=== PATIENT | female | born 1970 | race Two or more races ===

== ENCOUNTER 2025-10-10 15:38 | Inpatient (IN) | payer MEDICARE, OTHER ==
[~2025-10-10] VITALS: Ht 165.1 cm; Wt 61.7 kg
[2025-10-10 15:53] VITALS: O2SAT 99
[2025-10-10 16:08] LABS: PLATELET COUNT (AUTO) 379 K/uL (150-450); RED BLOOD CELL COUNT(AUTO) 4.58 MIL/uL (4.0-5.2); RED CELL DISTRIBUTION WIDTH 14.1 % (11.5-15.0); WHITE BLOOD COUNT (AUTO) 11.3 K/uL (4.3-11.0)
[2025-10-10 16:15] LABS: CALCIUM, SERUM 8.9 mg/dL (8.5-10.1); CREATININE 0.9 mg/dL (0.6-1.3); SODIUM SERUM 141 mmol/L (136-145); UREA NITROGEN, BLOOD 12 mg/dL (7-18)
[2025-10-10 16:25] LABS: ALCOHOL, BLOOD < 3 mg/dL (0-10); ASPARTATE AMINOTRANSFERASE 12 U/L (15-37); TOTAL PROTEIN, SERUM 7.8 g/dL (6.4-8.2)
[2025-10-10 16:48] LABS: APPEARANCE,URINE CLEAR (CLEAR); BLOOD, URINE TRACE-INTA Ery/uL (NEGATIVE); LEUKOCYTE ESTERASE ,URINE 2+ (NEGATIVE); NITRITE, URINE NEGATIVE (NEGATIVE); UGLUCOSE NEGATIVE (NEGATIVE)
[2025-10-10 16:54] LABS: AMPHETAMINE, URINE NEGATIVE (NEGATIVE); BARBITURATE, URINE NEGATIVE (NEGATIVE); BENZODIAZEPINE, URINE NEGATIVE (NEGATIVE); CANNABINOID, URINE NEGATIVE (NEGATIVE); COCCAINE, URINE NEGATIVE (NEGATIVE); OPIATE, URINE NEGATIVE (NEGATIVE)
[2025-10-10] MEDS ORDERED: CYCLOBENZAPRINE 10 MG TABLET PO PRN ×2 (17:00→22:30)
[2025-10-10] MEDS ORDERED: oxyCODONE IR immediate release 5 MG TABLET PO PRN (17:00)
[2025-10-10 18:06] LABS: ADD URINE CULTURE YES
[2025-10-10] MEDS ORDERED: MAGNESIUM HYDROXIDE 30 ML UDC PO PRN (20:00)
[2025-10-10] MEDS ORDERED: LORAZEPAM 1 MG TABLET PO PRN ×2 (20:00)
[2025-10-10] MEDS ORDERED: ZOLPIDEM TARTRATE 5 MG TABLET PO PRN ×2 (20:00)
[2025-10-10] MEDS ORDERED: MAG HYDROX/AL HYDROX/SIMETH 30 ML UDC PO PRN (20:00)
[2025-10-10] MEDS ORDERED: LOSA50TA39 PO (20:15)
[2025-10-10] MEDS ORDERED: MELA5TAB PO (20:16)
[2025-10-10] MEDS ORDERED: VENL37.591 PO (20:22)
[2025-10-10] MEDS ORDERED: CLON0.1T PO (20:25)
[2025-10-10] MEDS ORDERED: CYCL5TAB PO (20:26)
[2025-10-10] MEDS ORDERED: DIVA500T54 PO (20:27)
[2025-10-10] MEDS ORDERED: PRAZ2CAP2 PO (20:27)
[2025-10-10] MEDS ORDERED: GABA-532 PO (20:29)
[2025-10-10] MEDS: BLOOD SUGAR DIAGNOSTIC 1 EACH STRIP IN ONE (20:44)
[2025-10-10 21:11] VITALS: TEMP 98.1; O2SAT 98
[2025-10-10] MEDS ORDERED: TRAZ150T75 PO (21:14)
[2025-10-10] MEDS ORDERED: HOME MED MISCELLANEOUS XX SCH (22:30)
[2025-10-10] MEDS ORDERED: CLONIDINE HCL 0.1 MG TABLET PO PRN (22:30)
[2025-10-10] MEDS: CEPHALEXIN MONOHYDRATE 500 MG CAPSULE PO SCH (22:31)
[2025-10-11] MEDS: ACETAMINOPHEN 325 MG TABLET PO PRN (02:56)
[2025-10-11 07:44] LABS: PLATELET COUNT (AUTO) 347 K/uL (150-450); RED BLOOD CELL COUNT(AUTO) 4.31 MIL/uL (4.0-5.2); RED CELL DISTRIBUTION WIDTH 14.0 % (11.5-15.0); WHITE BLOOD COUNT (AUTO) 9.2 K/uL (4.3-11.0)
[2025-10-11 07:52] LABS: CALCIUM, SERUM 9.0 mg/dL (8.5-10.1); CREATININE 0.8 mg/dL (0.6-1.3); SODIUM SERUM 140.0 mmol/L (136-145); UREA NITROGEN, BLOOD 13.0 mg/dL (7-18)
[2025-10-11 08:00] VITALS: BP 131/100; TEMP 98.1; O2SAT 96
[2025-10-11 08:06] LABS: LDL 106.0 mg/dL (0-99)
[2025-10-11] MEDS: NICOTINE PATCH (14MG) 14 MG PATCH.TD24 TD SCH (09:00)
[2025-10-11 09:24] VITALS: BP 131/100
[2025-10-11] MEDS: LOSARTAN POTASSIUM 50 MG TABLET PO SCH (09:24)
[2025-10-11] MEDS: GABAPENTIN 100 MG CAPSULE PO SCH (09:24)
[2025-10-11] MEDS ORDERED: PRAZOSIN HCL 1 MG CAPSULE PO SCH (22:00)
== END 2025-10-11 13:45 | disposition left against medical advice (07) | DRG 885 ==
LOC: ER 15:59 → GPS 17:59
PROVIDERS: ADMIT Psychiatry & Neurology Psychiatry
DX: F31.30 Bipolar disorder, current episode depressed, mild or moderate severity, unspecified (principal); R45.851 Suicidal ideations; I10 Essential (primary) hypertension; F10.220 Alcohol dependence with intoxication, uncomplicated; M54.50 Low back pain, unspecified; H91.3 Deaf nonspeaking, not elsewhere classified; Z11.52 Encounter for screening for COVID-19; Z53.29 Procedure and treatment not carried out because of patient's decision for other reasons
CPT/HCPCS: 36415; 80048-TC; 80061-TC; 80076-TC; 81001; 82962-TC; 85025-TC; 87086-TC; 87186-TC; 97110-TC; 97116-TC; G0480